=== PATIENT | male | born 1985 | race Hispanic/Latino ===

== ENCOUNTER 2019-04-13 22:35 | Emergency (ER) | payer OTHER ==
[~2019-04-13] VITALS: Ht 170.2 cm; Wt 100.5 kg
[2019-04-13] MEDS ORDERED: muscle relaxer (22:43)
[2019-04-13] MEDS ORDERED: NAPR250T4 PO (22:43)
[2019-04-14] MEDS ORDERED: ROBA500T PO (02:43)
[2019-04-14] MEDS ORDERED: NAPR-837 PO (02:43)
[2019-04-14] MEDS ORDERED: PRED20TA PO (02:43)
[2019-04-14] MEDS ORDERED: METHOCARBAMOL 750 MG TAB PO ONE (02:45)
[2019-04-14] MEDS ORDERED: predniSONE 20 MG TAB PO ONE (02:45)
[2019-04-14] MEDS ORDERED: NAPROXEN 250 MG TAB PO ONE (02:45)
[2019-04-14] MEDS ORDERED: LIDOCAINE 5% (LIDODERM) PATCH TD ONE (02:45)
[2019-04-14 02:52] VITALS: BP 129/62
[2019-04-14] MEDS ORDERED: **NOTE PATIENT COMMENT** MISC XX SCH (21:00)
== END 2019-04-14 02:58 | disposition home or self-care (01) ==
LOC: M ED 22:35
DX: M54.5 Low back pain (principal); Z87.891 Personal history of nicotine dependence